=== PATIENT | female | born 1950 | race Caucasian/White ===

== ENCOUNTER 2019-12-18 17:27 | Inpatient (IN) | payer OTHER ==
[2019-12-18] MEDS ORDERED: TRAZODONE 150150 M1 PO (17:51)
[2019-12-18] MEDS ORDERED: PROLIA60 MG/1 ML SUBQ (17:54)
[2019-12-18] MEDS ORDERED: PAXIL40 MG PO (17:55)
[2019-12-18] MEDS ORDERED: PERCOCET 7.5-31 EAC1 PO (17:59)
[2019-12-18] MEDS ORDERED: NITROSTAT0.4 M1 PO (18:00)
[2019-12-18] MEDS ORDERED: LEVO-T100 MCG PO (18:03)
[2019-12-18] MEDS ORDERED: MORPHINE PO (18:03)
[2019-12-18] MEDS ORDERED: ENALAPRIL MALEA10 M1 PO (18:04)
[2019-12-18] MEDS ORDERED: DIAZEPAM 5 MG5 M1 PO (18:05)
[2019-12-18] MEDS ORDERED: CARISOPRODOL 3350 M1 PO (18:07)
[2019-12-18] MEDS ORDERED: BENADRYL25 MG PO (18:09)
[2019-12-19 00:05] VITALS: BP 173/97
[2019-12-19] MEDS ORDERED: MS CONTIN 30 MG30 MG PO (03:51)
[2019-12-19] MEDS ORDERED: SPIRONOLACTONE25 MG PO (03:59)
[2019-12-19] MEDS ORDERED: TRAZODONE HCL100 MG PO (04:03)
--- NOTE | 2019-12-19 04:40 | NUR ---
2149 Pt. arrived via non-emergent ambulance from [facility]. Pt. stood from [facility] to [facility] and sit on bed with 2 person assist. Pt. unable to follow directions to assist with transfer. Pt. is alert to name, year, place, and situation but has intermittent significant confusion and visual and tactile hallucinations. Pt. stated that "the green vita is the one that comes at night and touches me all over. I hate it". Rosa care done and new brief put on patient along with scrub pants. Pt. arrived from the ambulance with only underpants on. See chart for vitals and assessment on arrival. Pt. denies pain currently and no signs or symptoms of pain noted. Pt. up in willem-chair in day room and is loudly calling out for various items and assistance and banging on the willem-chair. At 2214 pt. was given 10 mg. Geodon IM to right upper arm. Pt. tolerated well. Pt. up in willem-chair in day room. No complaints noted at this time. Pt. personal belongings inventoried and security notified that valuable envelope needs to be picked up.
[2019-12-19 06:24] VITALS: BP 176/73
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
[2019-12-19 19:38] VITALS: BP 185/80
[2019-12-19 21:05] VITALS: BP 141/73
--- NOTE | 2019-12-20 03:08 | NUR ---
Assumed care of pt @ 1900. Pt calm, cooperative with pleasant demeanor this shift. Pt isolated in room but socializing with roommate. Pt states that the physician needs to "look in my ears for the infection in my nasal cavity". Denies SI/HI at present time. VSWNL. Health assessment with no abnormalities other than previously noted. Took medications whole without difficulty. Currently resting in bed with eyes closed. Will continue to monitor per protocol.
[2019-12-20 07:26] LABS: HEMATOCRIT 34.8 % (37.0-47.0); HEMOGLOBIN 11.4 gm/dL (12.0-15.0); MCHC 32.8 g/dL (28.0-37.0); MCV 91.4 fL (80.0-100.0); RBC 3.81 mil/uL (4.20-5.00); RDW 16.1 % (10.5-14.5); WBC 6.1 thou/uL (4.0-11.0)
[2019-12-20 07:46] LABS: CALCIUM 8.4 mg/dL (8.5-10.1); CREATININE 0.9 mg/dL (0.6-1.0); POTASSIUM 3.2 mmol/L (3.5-5.1)
[2019-12-20 07:53] VITALS: BP 166/78
[2019-12-20 08:00] VITALS: BP 166/78
--- NOTE | 2019-12-20 09:03 | NUR ---
Sw completed chart review and pt may d/c back to her home in [place], can set up HH for this pt if needed once stable.
--- NOTE | 2019-12-20 09:08 | NUR ---
ASSUMED PT CARE REPORT RECEIVED FROM NURSE PT IS AOX3. NO COMPLAINT. TAKES PILLS WHOLE WITH WATER. NO HIGH TEMP THIS AM. TEMP 98.3. BP 166/78. PT IS SITTING IN SOCIAL ROOM AT TIME. PT IS COOPERATIVE. NO COMPLAINT. WILL CONTINUE TO MONITOR.
--- NOTE | 2019-12-20 10:59 | NUR ---
WOUND CONSULT RE; NIC SCALE NIC SCALE IS 17. THE PATIENT IS INDEPENDENT AND CURRENTLY WALKING ON THE UNIT W/O ASSISTANCE. THE PATIENT COMMUNICATES WELL. THERE ARE NO WOUNDS. HER APPITITE IS GOOD. RECOMMENDATION; NONE AT THIS TIME. RECONSULT IF NEEDED. i WILL BE SIGNING OFF AT THIS TIME. RN COULD NOT BE FOUND
--- NOTE | 2019-12-20 16:24 | NUR ---
JUANY called Julia moreno's friend for collatoral information and d/c planning but had to leave a vm.
--- NOTE | 2019-12-20 17:46 | NUR ---
k replaced as ordered per . pt takes meds whole with water.
[2019-12-20 20:15] VITALS: BP 165/51
--- NOTE | 2019-12-21 02:13 | NUR ---
SITTING QUIETLY IN DAYRROM IN WHEELCHAIR UPON INITAL ASSESSMENT AT 1930-DURING PM ASSESSMENT IS VAGUE,SLOW TO RESPOND. DOES STATE DAY WAS "PRETTY GOOD"-DENIES SI/SH/HI. AFFECT BLUNTED-CONVERSATION FOCUSES MOSTLY ON PHYSICAL ISSUES AND CONTINUES TO NEED MUCH PROMPTING TO DO ANYTHING FOR SELFAS EVIDENCED BY WHEN GIVEN HS MEDICATIONS ASKED STAFF TO HOLD WATER CUP UP TO MOUTH AND PLACE PILLS IN MOUTH BECAUSE "MY HANDS ARE TOO SHAKEY" DENIES FEELING COLD OR ANXIOUS STATING "SOMETIMES I JUST GET SHAKEY" AND HOLDS OUT HANDS TO SHOW STAFF-IS NOTED TO HAVE GROSS TREMOR AND HANDS BILATERALLY WHEN DEMONSTRATING TO STAFF-BUT WHEN AT REST AND STAFF NOT IN ROOM NO TREMOR NOTED. DID TAKE HS SNACK WITH MEDS-REQUIRED MODERATE ASSIST TO USE TOILET AND COMPLETE HS CARES,PERINEAL CARE. NO MENTION IN CONVERSATION THIS PM OF ABELINO -REPORTED BY CONSTRUCTION PROJECT ASSISTANT WHO ASSISTED WITH HS CARES THAT SHE WAS OBSERVED TALKING TO UNSEEN OTHERS IN ROOM. REPORTS MILD GENERALIZED PAIN RATED A 3 ON 1-10 SCALE AT HS-MS CONTIN SCHEDULED Q 6 HOURS PER MD ORDER
[2019-12-21 08:50] VITALS: BP 136/86
--- NOTE | 2019-12-21 15:43 | NUR ---
Mallory met wiht pt today and she stated that she had friends at the [facility] in [facility] and would like to return there. She also menitoned her dght but they are estranged and her dght wants her to " get it togther and get off drugs". Mallory and Dr Canada spoke later and this pt might be meds seeking and d/c might be back to [facility], unless she would comply with treatment and placement can be established. Mallory will hand this over to the other SW on this team to follow up.
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
[2019-12-21 19:41] VITALS: BP 110/58
[2019-12-21 20:30] VITALS: BP 110/58
--- NOTE | 2019-12-21 23:59 | NUR ---
Pt was cooperative with medications for evening/hs meds. She states, "that Morphine is killing me and I wond't take it"! I assured her I did not have any morphine. I told her the name of the medication that I had for her and she took it whole with thin liquids. NO coughing or choking noted aftaer swallowing. Pt. was put to bed approximately 2130. Pt has been restless and her safety alarm has gone off multiple times. Pt. stated she was in pain.
[2019-12-22 08:42] VITALS: BP 112/46
--- NOTE | 2019-12-22 10:01 | NUR ---
0700 ASSUMED CARE OF PATIENT. PATIENT IN DAYROOM SITTING IN CHAIR AT THAT TIME. 0745 DENIES NEEDS DENIES SI/HI/AH/VH, DENIES ANXIET AND DEPRESSION, PATIENT STATES "ANGELS WILL HELP HER" PATIENT GRABS WRITERS HAND AND SAYS THE ANGELS WILL HELP YOU TOO, YOU ARE SO SWEET". PATIENT A+O X4. GOAL FOR TODAY PATIENT STATES "IM GONNA GET A PEDICURE" PATIENT CONCERN IS THAT SHE WOULD LIKE TO CONECT TO HER BANK AND MAKE SURE HER RENT GETS PAID IT IS DUE TODAY ON THE 3RD. MEDICATION TAKEN WHOLE AFTER QUESTIONING WHAT MEDS SHE HAS. PATIENT CONTINUES TO SIT IN DAYROOM WATCHING TV.WILL CONTINUE TO OBSERVE FOR BEHAVIORS
--- NOTE | 2019-12-22 12:08 | NUR ---
PT STATES I DO NOT NEED THAT MEDICATION" (SCHEDULED MORPHINE). PATIENT SAYS SHE HAS REQUESTED TO HAVE THAT MED TAKEN OFF. WHEN TECHNOLOGY APPLICATIONS CONSULTANT ASKS IF SHE IS REFUSING MEDICATION SHE QUICKLY STATES "OH NO I WILL COMPLY WITH THE DR'S ORDER BUT WILL TALK TO DR. NOTIFIED DR MADRID OF PATIENTS STATEMENT. AT THIS TIME PT LIKES TO GRAB WRITERS BLOUSE AND HAND STATING "YOU ARE SO PRETTY AND YOU DO SO WELL". WILL CONTINUE TO MONITOR.
--- NOTE | 2019-12-22 14:48 | NUR ---
JUANY talked with pt and asked if physical therapy after discharge is okay. She said it was. JUANY discussed pt with Dr. Canada who said she would prefer pt have outpatient therapy. She would like pt to discharge 12/26. JUANY called PT works in [place], [place] at [phone] who made an appt for pt to come into their facility on Fri. 12/28 @9:45 to establish services. They gave SW the fax number of [phone]. JUANY contacted [facility] and asked how pt can establish services. They asked that SW and pt call Friday [phone] before discharge and they will complete an assessment and then make an appt for the next day for pt to finish establishing services. They gave the fax number of [phone] for SW to fax discharge documents. JUANY provided this update to pt. SW team will continue to follow pt during her stay.
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
[2019-12-22 19:16] VITALS: BP 147/80
[2019-12-22 21:00] VITALS: BP 147/80
--- NOTE | 2019-12-23 01:31 | NUR ---
Assumed care of patient this pm shift. Patient was in her room when RN assessed her. Patients affect somewhat blunted. Patient explained that she was feeling sick and that she believes that she has an infection requiring a quarantine. RN witnessed patient cough up a thick green sputum into a napkin. Patient denies hi/si. Patient states that her whole body hurts. Patient also states that she is trying to wean off of morphine. Patient was adherent with scheduled medications. Patient takes medications whole. Patient ambulates via wheel chair. Patients assessment shows an elevated temperature of 100.6 degrees. Upon review, patient has had several elevated temperatures over the past few days. Blood pressure 147/80. The rest of the vital signs are stable. Patients breath sounds are clear post cough and green sputum produced, bowl sounds active, and s1 s2 heard with auscultation. Patient requested medicine for nausea as well as a throat lozenge. We will continue to monitor.
[2019-12-23 07:52] VITALS: BP 113/53
--- NOTE | 2019-12-23 10:59 | NUR ---
SW team evaluated transportation options for pt at discharge on Friday. According to [employer], pt lives 5 hours away. It would take pt 10 hours to get home via bussing. JUANY director advised JUANY to review this issue with the field case manager clothing supervisor. JUANY discussed this matter with the field case manager clothing supervisor who said that [facility] may be the best option; however, she will review issue with case management team and will return SW call with a final answer. SW team will continue to follow pt during her stay on this unit.
--- NOTE | 2019-12-23 12:07 | NUR ---
In wheelchair without s/o distress. Alert with happy expression, conversing with peers. When asked how she was doing she stated, "Awesome!" When asked about pain she stated it was a 10/10. Numeric pain scale explained, she still states it is a 10/10. Also concerned about green phlegm she coughed up early this morning. Instructed to save sputum and she provided several scant specimens on tissue that were clear this morning. Alert and orientated X4 with very detailed answers to questions. Also uses alot of nondenominational language and expresses appreciation. Conversive with peers. PT here, able to ambulate without difficulty with walker. Breath sounds clear t/o, bilaterally equal. Reg HR auscultated. Color pink with brisk capillary refill and palpable peripheral pulses. Attempted to void per commode, no results. Active bowel sounds over soft, flat abdomen. Bright affect this AM without s/o distress.
[2019-12-23 19:33] VITALS: BP 106/59
--- NOTE | 2019-12-23 21:05 | NUR ---
1900 ASSUMED CARE OF PT AFTER REPORT, PT UP IN DAY ROOM INTERACTING APPROPRIATELY WITH OTHERS. 2100 ASSESSMENT COMPLETED, PT RESTING IN BED, ALERT AND ORIENTED X 4 STATES SOMETIMES SHE SEES ANGELS OF THE LORD, RIGHT NOW DENIES S/I/HI OR HALLUCINATIONS, PT IS ANSWERING QUESATIONS APPROPRIATELY, AND HAS A HAPPY AFFECT, WILL CONTINUE WITH FREQUENT ROUNDING.
[2019-12-24 07:34] VITALS: BP 126/43
[2019-12-24 10:09] LABS: ABSOLUTE NEUTROPHILS 5.3 thou/uL (1.4-8.2); BASOPHILS 0.4 % (0.0-2.0); EOSINOPHILS 0.1 % (0.0-3.0); HEMATOCRIT 33.7 % (37.0-47.0); HEMOGLOBIN 10.9 gm/dL (12.0-15.0); LYMPHOCYTES 11.8 % (24.0-44.0); MCH 29.9 pg (26.0-34.0); MCHC 32.2 g/dL (28.0-37.0); MCV 92.9 fL (80.0-100.0); MONOCYTES 4.5 % (1.0-8.0); PLATELET COUNT 255 thou/uL (150-400); POLYS 83.2 % (36.0-66.0); RBC 3.62 mil/uL (4.20-5.00); WBC 6.4 thou/uL (4.0-11.0)
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
[2019-12-24 10:25] LABS: CALCIUM 8.5 mg/dL (8.5-10.1); CREATININE 0.9 mg/dL (0.6-1.0); POTASSIUM 3.2 mmol/L (3.5-5.1)
--- NOTE | 2019-12-24 12:25 | NUR ---
Yesterday evening JUANY received a call from the case management team stating that pt will need to go home via [employer] with the taxi rate if she is not in need of a stretcher or wheelchair. JUANY discussed this option in tx and was told by P/T that it is advised pt do not use a wheelchair at all so she can get stronger. JUANY contacted [employer] and arranged pt's transportation for Friday12/27/19 @ 12pm. Trip # is [id number]. JUANY team will continue to follow pt during her stay on this unit.
[2019-12-24 12:58] VITALS: BP 126/43
--- NOTE | 2019-12-24 14:30 | NUR ---
PT ATTENDED GROUP AT [phone], PT WAS HYPERVERBAL DURING THE GAME.
--- NOTE | 2019-12-24 15:05 | NUR ---
[id number] [phone] [id number] Group was lead by Luzma in dieatry. Juliana did not attend.
[2019-12-24 16:41] LABS: URINE BILIRUBIN NEGATIVE (Negative); URINE BLOOD 1+ (Negative); URINE CLARITY CLEAR; URINE COLOR YELLOW; URINE GLUCOSE-RANDOM* NEGATIVE (Negative); URINE KETONES TRACE (Negative); URINE LEUKOCYTES NEGATIVE (Negative); URINE NITRITE NEGATIVE (Negative); URINE PROTEIN (DIPSTICK) NEGATIVE (Negative)
[2019-12-24 16:47] LABS: SQUAMOUS 4-10 Moderate /LPF (0-3); URINE RBC 3-10 Few /HPF (0-2); URINE WBC 0-5 Rare /HPF (0-5)
[2019-12-24 16:48] LABS: BACTERIA 1-9 Few /HPF (None Seen); CASTS None Seen /LPF (None Seen); CRYSTALS None Seen /LPF (None Seen)
[2019-12-24 19:59] VITALS: BP 156/63
[2019-12-24 21:45] VITALS: BP 156/63
[2019-12-25] VITALS (8 sets, daily range): BP systolic 159–190; BP diastolic 65–95
--- NOTE | 2019-12-25 00:29 | NUR ---
Pt. was sitting up in day room socially interacting with other patients. Pt.'s affect varies between flat and bright and her speech is clear but inappropriate at times. Pt. denies seeing any angels, demons or God but does state, "the angels are good to me". Pt. can answer all questions regarding orientation but intermittently and frequently makes inappropriate statements. Lungs are clear but decreased and light yellow nasal drainage is noted. Pt. showed this nurse a used tissue and pointed out the yellow drainage. Temp was 99.9 and tylenol was given. Approximately 1.5 hrs. later temp was rechecked and it was 99.3. Assisted patient with BSC x 1. No difficulties urinating noted and non reported by patient.
--- NOTE | 2019-12-25 13:57 | NUR ---
Awake and alert without s/o distress. Orienated X4, denies SI/HI. Frequent requests, needy at times. Spending most of time in day room conversing with staff and peers. Requested tylenol for pain of 6, decreased to 0 on reassessment. Later requested stomach medicine d/t her abdomen hurting. Mylanta given with good results. Breath sounds clear t/o, bilaterally equal. Reg HR auscultated. Color pink with brisk capillary refill and palpable peripheral pulses. Hypertensive this AM, Dr. Teague notified, clonidine given per order. Voiding per toilet. Active bowel sounds over soft, flat abdomen. Spending most of time in wheelchair instead of using walker.
--- NOTE | 2019-12-25 23:39 | NUR ---
Pt. took hs medications whole and with thin liquids. Pt. also requested PRN Tylenol for generalized pain of 4/10, Cepacol for sore throat, and Hydroxyazine for sleep/anxiety. No coughing or choking noted after swallowing.
--- NOTE | 2019-12-26 07:50 | NUR ---
0710 ASSUMED CARE OF PATIENT. PATIENT SITTING ON SIDE OF BED COMMUNICATING WITH ROOMATE. WHEN CORPORATE EVENTS DIRECTOR STARTS TO TALK TO ROOMATE, PATIENT BECOMES INTRUSIVE AND INTERUPTS CONVERSATION TELLING ROOMATE HOW TO DO THINGS AND NOT TO DO THINGS. CORPORATE EVENTS DIRECTOR ASKED PATIENT NOT TO INTERUPS AND QUICKLY SAYS "IM SORRY I WILL BE QUIET". PATIENT DENIES NEEDS AND STATES SHE WILL BE HEADED TO DAYROOM WELL. WILL CONTINUE TO OBSERVE FOR BEHYAVIORS.
[2019-12-26 08:49] VITALS: BP 140/69
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
[2019-12-26 20:01] VITALS: BP 117/88
--- NOTE | 2019-12-27 05:10 | NUR ---
ASSUMED CARE OF PT AT 1900HRS. ASSESSMENTS CHARTED. PT IS UP AD CHET. PT WAS CALM AND COOPERATIVE THIS SHIFT. PT WAS NOT SEEN HOLDING HANDS WITH OTHERS THIS SHIFT. PT TOOK ALL MEDS. PT WAS REQUESTING ALLERGY MEDICATIONS BUT NONE AVAILABLE AT THIS TIME. PLEASE CONSIDER ADDING BENADRYL. PT WAS ABLE TO GO TO BED AT A REASONABLE TIME AND WAS ABLE TO SLEEP PART OF THE SHIFT. VSS AND NO S/S OF ACUTE DISTRESS. WILL CONTINUE TO MONITOR.
[2019-12-27 07:55] VITALS: BP 127/70
[2019-12-27 08:06] VITALS: BP 127/70
--- NOTE | 2019-12-27 08:52 | NUR ---
SW completed chart review and pt is ready to d/c today.
--- NOTE | 2019-12-27 10:25 | NUR ---
0700 ASSUMED CARE OF PATIENT. PATIENT SITTING IN CHAIR IN DAYROOM DENIES NEEDS AND STATES "I REMEMBER YOU (TALKING TO IC DESIGN ENGINEER), I FIRED YOU YESTERDAY AND WILL NOT HAVE YOU MY NURSE. IF THIS CONTINUES WE WILL RUMBLE". PATIENT DENIES NEEDS AT THAT TIME.
[2019-12-27] MEDS ORDERED: RISPERDAL2 MG PO (10:27)
[2019-12-27] MEDS ORDERED: VISTARIL 25 MG25 M1 PO (10:27)
[2019-12-27] MEDS ORDERED: RISPERDAL 1 MG T1 MG PO (10:27)
[2019-12-27] MEDS ORDERED: K-DUR 20 MEQ T20 MEQ PO (10:28)
--- NOTE | 2019-12-27 12:12 | NUR ---
JUANY D/C Note SW and pt contacted [facility] and scheduled an outpatient psych appt to establish care for 12/27 @ 7:30 am. SW and pt also contacted PT works and confirmed her appt for 12/28 @9:45 for outpatient therapy. JUANY gave pt and printout out with both appoinments and again reviewed this with her. JUANY faxed discharge docs to both places and an order for outpatient therapy to PT works. JUANY submitted this docs along with confirmations pages of both faxes to pt's file. No other needs for JUANY team to address at this time.
--- NOTE | 2019-12-27 12:26 | NUR ---
PATIENT GIVEN D/C ORDERS. PATIENT VOICED UNDERSTANDING. PATIENT FILLED OUT SURVEY. COPIES OF INSTRUCTIONS IN ENVELOPE WITH SCRIPTS. PATIENT RESTING IN BED WANTS TO REST BEFORE LONG DRIVE HOME.
--- NOTE | 2019-12-27 13:07 | NUR ---
1300 PATIENT D/C HOME VIA PAYMEY PER WC TO VEHICLE. ACCOMPANIED BY NEWS WIRE PHOTO OPERATOR AND TECHNICAL HEALTHCARE CONSULTANT. D/C INSTRUCTIONS GIVEN AND BELONGING ALSO IN HAND.
== END 2019-12-27 13:00 | disposition home health service (06) | DRG 882 ==
LOC: SBH 17:27
PROVIDERS: Internal Medicine; ADMIT Psychiatry & Neurology Psychiatry
DX: F43.10 Post-traumatic stress disorder, unspecified (principal); F01.51 Vascular dementia, unspecified severity, with behavioral disturbance; F03.91 Unspecified dementia, unspecified severity, with behavioral disturbance; I10 Essential (primary) hypertension; J40 Bronchitis, not specified as acute or chronic; E03.9 Hypothyroidism, unspecified; F41.1 Generalized anxiety disorder; M79.7 Fibromyalgia; E87.6 Hypokalemia; J02.9 Acute pharyngitis, unspecified; Z79.899 Other long term (current) drug therapy; Z88.0 Allergy status to penicillin; Z88.8 Allergy status to other drugs, medicaments and biological substances; Z91.041 Radiographic dye allergy status; Z91.040 Latex allergy status
CPT/HCPCS: 10880